=== PATIENT | female | born 1955 | race Caucasian/White ===

== ENCOUNTER 2021-10-29 15:03 | Observation (INO) | payer OTHER ==
--- OUTSIDE RECORDS SUMMARY | 2021-10-29 15:07 | XMS REPORT | Continuity of Care Document ---
:1955 Author Organization [facility] t Address [address] [place] [address] Care Team Providers Name Role Phone ALANA, CAMERON Huff Primary Care Physician Unavailable Pal Mason Attending Clinician Unavailable Concepcion Dietrich Attending Clinician Unavailable Aaron Bertrand DO Attending Clinician AARON BERTRAND Attending Clinician Unavailable Payers Payer Name Policy Type Policy Number Effective Date Expiration Date S ource Problems Condition Condition Condition Status Onset Resolution Last Treating Co mments Source Name Details Category Date Date Treatment Clinician Date No known No known Disease Unive rs active active ity of problems problems [facility] Allergies, Adverse Reactions, Alerts Allergy Allergy Status Severity Reaction(s) Onset Inactive Treating Comm ents Source Name Type Date Date Clinician Codeine Propensi Active Other - See 2015-03 No Un tracy ty to comments 2-13 allergy, ity of adverse 00:00: makes her [place] reaction 00 too Medical s tired. Branch Meperidi Propensi Active Other - See 2015-03 No U nivers ne ty to comments 2-13 allergy, ity of adverse 00:00: makes her [place] reaction 00 too Medical s tired. Branch Tetracyc Propensi Active Other - See 2015-03 GI U nivers lines ty to comments 2-13 Discomfor ity o f adverse 00:00: t [place] reaction 00 Medical s Branch CODEINE DRUG Active Other-Cmnt 2015-03 Unive rs INGREDI 2-13 ity of 00:00: [place] 00 Medical Branch MEPERIDI DRUG Active Other-Cmnt 2015-03 Univ ers NE INGREDI 2-13 ity of 00:00: [place] 00 Medical Branch TETRACYC Drug Active Other-Cmnt 2015-03 Univ ers LINES Class 2-13 ity of 00:00: [place] 00 [facility] Branch Social History Social Habit Start Date Stop Date Quantity Comments Source Exposure to Not sure [facility] SARS-CoV-2 (event) Medica l Branch Sex Assigned [birth year] [facility] 00:00:00 00:00:00 [facility] Branch Smoking Status Start Date Stop Date Source Unknown if ever smoked [facility] Medications Ordered Filled Start Stop Current Ordering Indication Dosage Frequency Signature Comments Components Source Medication Medication Date Date Medication? Clinician (SIG) Name Name amoxicillin 2020-03 Yes [id number] 1{tbl} Take 1 Univers -clavulanat 1-10 tablet by ity of e 875-125 00:00: mouth [place] mg per 00 every 12 Medical tablet (twelve) Branch hours. Immunizations Ordered Filled Immunization Date Status Comments [facility] e Immunization Name Name SARS-COV-2 COVID-19 2020-06-25 Completed Unive rsity of PFIZER VACCINE 00:00:00 [facility] SARS-COV-2 COVID-19 2020-06-04 Completed Unive rsity of PFIZER VACCINE 00:00:00 [facility] Vital Signs Vital Name Observation Time Observation Value Comments Source Systolic blood 2021-01-22 14:50:00 120 mm[Hg] Univer sity of pressure [facility] Diastolic blood 2021-01-22 14:50:00 94 mm[Hg] Unive rsity of pressure [facility] Heart rate 2021-01-22 14:50:00 84 /min [facility] Body temperature 2021-01-22 14:50:[address] [facility] 2021-01-22 14:50:00 16 /min [facility] Body height 2021-01-22 14:50:00 152.4 cm [facility] Body weight 2021-01-22 14:50:00 61.236 kg [facility] BMI 2021-01-22 14:50:00 26.37 kg/m2 [facility] Medical Branch Oxygen saturation in 2021-01-22 14:50:00 99 /min University Arterial blood by [facility] Pulse oximetry Branch Procedures Procedure Date / Time Performed Performing Clinician [facility] e NOTICE OF PRIVACY 2021-01-22 14:42:16 Doctor Unassigned, No Univ [facility] PRACTICES Name Medical Branch Encounters Start End Encounter Admission Attending Care Care Encounter Source Date/Time Date/Time Type Type Clinicians Facility Department ID 2021-04-09 Outpatient Mason, STLMLC STLMLC [id number] Common 14:03:57 [facility] [id number] [facility] 2021-04-09 Outpatient Mason, STLMLC STLMLC [id number] Common 13:50:42 [facility] [id number] [facility] 2021-04-09 Outpatient Mason, STLMLC STLMLC [id number] Common 13:46:26 [facility] [id number] [facility] 2021-04-09 Outpatient Mason, STLMLC STLMLC [id number] Common 13:33:16 [facility] [id number] [facility] 2021-04-09 Outpatient Mason, STLMLC STLMLC [id number] Common 12:31:47 [facility] [id number] [facility] 2021-04-09 Outpatient Mason, STLMLC STLMLC [id number] Common 12:27:56 [facility] [id number] [facility] 2021-04-09 Outpatient Mason, STLMLC STLMLC [id number] Common 12:25:49 [facility] [id number] [facility] 2021-04-09 Outpatient Mason, STLMLC STLMLC [id number] Common 12:16:10 Pal [address] [facility] 2021-04-09 Outpatient Mason, STLMLC STLMLC [id number] Common 11:57:55 Pal [address] [facility] 2021-04-09 Outpatient Mason, STLMLC STLMLC [id number] Common 11:57:32 Pal [address] [facility] 2021-04-09 Outpatient Mason, STLMLC STLMLC [id number] Common 11:55:52 [facility] [id number] [facility] 2021-04-09 Outpatient Mason, STLMLC STLMLC [id number] Common 11:49:29 [facility] [id number] [facility] 2021-04-09 Outpatient Mason, STLMLC STLMLC [id number] Common 11:46:51 [facility] [id number] [facility] 2021-04-09 Outpatient STLMLC STLMLC [id number] Common 11:43:46 13044 [facility] 2021-04-09 Outpatient STLMLC STLMLC [id number] Common 11:43:34 25[address] [facility] 2021-04-09 Outpatient Millender, STLMLC STLMLC [id number] Common 11:40:16 Concepcion 417[address] [facility] 2021-04-09 Outpatient Millender, STLMLC STLMLC [id number] Common 11:36:34 Concepcion 6[address] [facility] 2021-04-09 Outpatient Millender, STLMLC STLMLC [id number] Common 11:17:58 Concepcion [address]757 [facility] 2021-04-09 Outpatient Millender, STLMLC STLMLC [id number] Common 11:11:16 Concepcion [id number] [facility] 2021-04-09 Outpatient Millender, STLMLC STLMLC [id number] Common 11:05:21 Concepcion [id number] [facility] 2021-04-09 Outpatient Millender, STLMLC STLMLC [id number] Common 11:04:44 Concepcion [id number] [facility] 2021-04-09 Outpatient Millender, STLMLC STLMLC [id number] Common 11:01:04 Concepcion [id number] [facility] 2021-04-09 Outpatient Millender, STLMLC STLMLC [id number] Common 11:00:52 Concepcion [id number] [facility] 2021-01-22 2021-01-22 [id number] Univers 08:55:00 09:25:00 Aaron PZIANO [id number] [facility] [id number] [facility] [id number] [place] [address] Branch 2021-01-22 2021-01-22 Emergency X [facility] ERT [id number] Univers 08:55:00 09:25:00 AARON ity [facility] 2021-01-06 2021-01-06 Outpatient STLMLC STLMLC [id number] Common 00:00:00 00:00:00 [facility] 2020-12-18 2020-12-18 Outpatient STLMLC STLMLC [id number] Common 00:00:00 00:00:00 [facility] 2020-12-12 2020-12-12 Outpatient STLMLC STLMLC [id number] Common 00:00:00 00:00:00 [facility] 2020-12-02 2020-12-02 Outpatient STLMLC STLMLC [id number] Common 00:00:00 00:00:00 [facility] 2020-11-22 2020-11-22 Outpatient STLMLC STLMLC [id number] Common 00:00:00 00:00:00 [facility] 2020-11-14 2020-11-14 Outpatient STLMLC STLMLC [id number] Common 00:00:00 00:00:00 [facility] 2020-08-06 2020-08-06 Outpatient STLMLC STLMLC [id number] Common 00:00:00 00:00:00 [facility] 2020-08-06 2020-08-06 Outpatient STLMLC STLMLC [id number] Common 00:00:00 00:00:00 [facility] 2020-06-18 2020-06-18 Outpatient STLMLC STLMLC [id number] Common 00:00:00 00:00:00 [facility] 2020-05-08 2020-05-08 Outpatient STLMLC STLMLC [id number] Common 00:00:00 00:00:00 [facility] 2020-02-29 2020-02-29 Outpatient STLMLC STLMLC [id number] Common 00:00:00 00:00:00 [facility] 2020-01-25 2020-01-25 Outpatient STLMLC STLMLC [id number] Common 00:00:00 00:00:00 [facility] 2020-01-04 2020-01-04 Outpatient STLMLC STLMLC [id number] Common 00:00:00 00:00:00 [facility] 2019-12-27 2019-12-27 Outpatient STLMLC STLMLC [id number] Common 00:00:00 00:00:00 [facility] 2019-12-18 2019-12-18 Outpatient STLMLC STLMLC [id number] Common 00:00:00 00:00:00 [facility] 2019-12-12 2019-12-12 Outpatient STLMLC STLMLC [id number] Common 00:00:00 00:00:00 [facility] 2019-12-12 2019-12-12 Outpatient STLMLC STLMLC [id number] Common 00:00:00 00:00:00 [facility] 2019-12-11 2019-12-11 Outpatient STLMLC STLMLC [id number] Common 00:00:00 00:00:00 [facility] 2019-11-30 2019-11-30 Outpatient STLMLC STLMLC [id number] Common 00:00:00 00:00:00 [facility] Results This patient has no known results.
[2021-10-29 16:04] LABS: Absolute Lymphocytes (CBC) 0.8 K/uL (0.7-4.9); Hematocrit 46.2 % (36.0-45.0); Lymphocytes % 16.7 % (15.3-44.8); MCV 93.3 fL (80-100); MPV 8.6 fL (7.6-11.3); RBC Red Blood Cell Count 4.95 M/uL (3.86-4.86)
--- NOTE | 2021-10-29 16:12 | RAD REPORT ---
EXAM DESCRIPTION: CT - Head Brain Wo Cont - 10/29/2021 4:02 pm CLINICAL HISTORY: sdf COMPARISON: No comparisons TECHNIQUE: Axial 5 mm thick images of the head were obtained without IV contrast. All CT scans are performed using dose optimization technique as appropriate and may include automated exposure control or mA/KV adjustment according to patient size. FINDINGS: No intracranial hemorrhage, mass, edema or shift of mid-line structures. No acute cortical based infarction. No cortical edema or sulcal effacement. No abnormal extra-axial fluid collections. Ventricles are normal. Patient has advanced for age diminished attenuation throughout the cerebral w padilla matter. Thalamus, basal ganglia and brainstem tissues appear generally spared. Arterial tree edd cifications are present. Mastoid air cells and visualized portions of the paranasal sinuses are clear. No acute bony findings. IMPRESSION: No hemorrhage, mass or other acute intracranial finding identifiable. Extensive diminished attenuation in the cerebral white matter. This is most likely advanced for age c hronic ischemic change. Chronic ischemic change can mask nonhemorrhagic CVA.
--- NOTE | 2021-10-29 16:19 | RAD REPORT ---
EXAM DESCRIPTION: RAD - Chest Single View - 10/29/2021 3:51 pm CLINICAL HISTORY: MALAISE COMPARISON: None TECHNIQUE: AP portable chest image was obtained 10/29/2021 3:51 pm . FINDINGS: Interstitial markings are prominent suspected to be baseline fibrosis. Minimal edema or in filtrate could be masked. No peripheral mass or consolidations seen. Heart and vasculature are normal. No measurable pleural effusion and no pneumothorax. No acute bony abnormality seen. No acute aortic findings suspected. IMPRESSION: No acute cardiopulmonary process. Prominent interstitial pattern is believed be baseline. Mild edema or infiltrate could be masked.
[2021-10-29 16:29] LABS: Albumin 3.3 g/dL (3.4-5.0); Bilirubin Total 0.3 mg/dL (0.2-1.0); Potassium 4.4 mmol/L (3.5-5.1); Protein, Total 6.6 g/dL (6.4-8.2); Troponin High Sensitivity 4.3 pg/mL (<58.9)
[2021-10-29] MEDS ORDERED: INSULIN -REGULAR HUMAN 50 UNIT/0.5 ML ML ONE (17:13)
[2021-10-29] MEDS ORDERED: NA CHLORIDE 0.9% 1,000 ML ONE (17:13)
--- NOTE | 2021-10-29 17:19 | EDPHYS ---
Physician Documentation [facility] Name: Laurie Frank Age: 66 yrs Sex: Female : 1955 Arrival Date: 10/29/2021 Time: 15:09 Bed 14 Private MD: Anders Drew ED Physician Mark Salguero HPI: 10/29 17:14 This 66 yrs old Female presents to ER via Wheelchair with complaints of Sent jl9 By Rajendra, Trouble Walking x numerous weeks.. 17:14 Onset: The symptoms/episode began/occurred 2 week(s) ago. Associated signs and jl9 symptoms: Pertinent positives:. Modifying factors: The patient symptoms are alleviated by nothing, the patient symptoms are aggravated by nothing. It is unknown whether or not the patient has had similar symptoms in the past. Historical: - Allergies: 15:15 TETRACYCLINES; jh5 15:15 Codeine; jh5 - Immunization history:: Adult Immunizations up to date. - Social history:: Smoking status: Patient denies any tobacco usage or history of. Patient/guardian denies using tobacco, but has a distant history of tobacco abuse. ROS: 17:15 Constitutional: Negative for fever, chills, and weight loss. jl9 17:15 ENT: Negative for injury, pain, and discharge, Neck: Negative for injury, pain, and swelling, Cardiovascular: Negative for chest pain, palpitations, and edema, Respiratory: Negative for shortness of breath, cough, wheezing, and pleuritic chest pain, Abdomen/GI: Negative for abdominal pain, nausea, vomiting, diarrhea, and constipation, Back: Negative for injury and pain, : Negative for injury, bleeding, discharge, and swelling. 17:15 Skin: Negative for injury, rash, and discoloration. 17:15 Psych: Negative for depression, anxiety, suicide ideation, homicidal ideation, and hallucinations, Allergy/Immunology: Negative for hives, rash, and allergies, Endocrine: Negative for neck swelling, polydipsia, polyuria, polyphagia, and marked weight changes, Hematologic/Lymphatic: Negative for swollen nodes, abnormal bleeding, and unusual bruising. 17:15 Constitutional: Positive for malaise, poor PO intake. 17:15 MS/extremity: Positive for Lower leg weakness bilaterally. . 17:15 Neuro: Positive for weakness. Exam: 17:16 Constitutional: This is a well developed, well nourished patient who is awake, alert, jl9 and in no acute distress. Head/Face: Normocephalic, atraumatic. Eyes: Pupils equal round and reactive to light, extra-ocular motions intact. Lids and lashes normal. Conjunctiva and sclera are non-icteric and not injected. Cornea within normal limits. Periorbital areas with no swelling, redness, or edema. ENT: Mucous membranes moist. Neck: Trachea midline, no thyromegaly or masses palpated, and no cervical lymphadenopathy. Supple, full range of motion without nuchal rigidity, or vertebral point tenderness. No Meningismus. Chest/axilla: Normal chest wall appearance and motion. Nontender with no deformity. No lesions are appreciated. Cardiovascular: Regular rate and rhythm with a normal S1 and S2. No gallops, murmurs, or rubs. Normal PMI, no JVD. No pulse deficits. Respiratory: Lungs have equal breath sounds bilaterally, clear to auscultation and percussion. No rales, rhonchi or wheezes noted. No increased work of breathing, no retractions or nasal flaring. Abdomen/GI: Soft, non-tender, with normal bowel sounds. No distension or tympany. No guarding or rebound. No evidence of tenderness throughout. Back: No spinal tenderness. No costovertebral tenderness. Full range of motion. Skin: Warm, dry with normal turgor. Normal color with no rashes, no lesions, and no evidence of cellulitis. MS/ Extremity: Pulses equal, no cyanosis. Neurovascular intact. Full, normal range of motion. 17:16 Psych: Awake, alert, with orientation to person, place and time. Behavior, mood, and affect are within normal limits. 17:16 Neuro: Motor: strength is 5/5 in the right arm and left arm, Strength is 2/5 in the right leg and left leg. Vital Signs: 15:17 BP 121 / 82; Pulse 104; Resp 16; Temp 98.5; Pulse Ox 97% ; Weight 43.54 kg; Height 4 jh5 ft. 11 in. (149.86 cm); Pain 0/10; 16:38 BP 114 / 78; Pulse 80; Resp 16; Pulse Ox 98% on R/A; kr3 17:46 BP 115 / 74; Pulse 73; Resp 16; Pulse Ox 98% on R/A; kr3 15:17 Body Mass Index 19.39 (43.54 kg, 149.86 cm) [facility] MDM: 15:26 Patient medically screened. 16:21 Test interpretation: by ED physician or midlevel provider: ECG. 17:17 Data reviewed: vital signs, nurses notes, lab test result(s), radiologic studies. Counseling: I had a detailed discussion with the patient and/or guardian regarding: the historical points, exam findings, and any diagnostic results supporting the discharge/admit diagnosis, lab results, radiology results, the need for further work-up and treatment in the hospital. Physician consultation: Anders Drew MD was called at 17:17, was contacted at 17:17, regarding admission, and will see patient in inpatient room. 10/29 15:29 Order name: CBC with Diff; Complete Time: 16:26 10/29 15:29 Order name: Troponin HS; Complete Time: 16:46 10/29 15:29 Order name: XRAY Chest (1 view); Complete Time: 16:26 10/29 15:30 Order name: CMP; Complete Time: 16:46 10/29 15:36 Order name: SARS-COV-2 RT PCR (Document "Date of Onset" if Symptomatic); Complete Time: 18:20 10/29 18:08 Order name: Glucose, Ancillary Testing; Complete Time: 18:20 EDMS 10/29 15:29 Order name: EKG; Complete Time: 15:30 10/29 15:29 Order name: Cardiac monitoring; Complete Time: 16:12 10/29 15:29 Order name: EKG - Nurse/Tech; Complete Time: 15:54 10/29 15:29 Order name: IV Saline Lock; Complete Time: 15:54 10/29 15:29 Order name: Labs collected and sent; Complete Time: 15:54 10/29 15:29 Order name: CT Head Brain wo Cont; Complete Time: 16:26 10/29 15:29 Order name: O2 Per Protocol; Complete Time: 16:10 10/29 15:29 Order name: O2 Sat Monitoring; Complete Time: 16:10 jl9 10/29 16:22 Order name: Labs collected and sent: recollect covid on pcr swab; Complete Time: 16:34 bd Administered Medications: 17:08 Drug: Insulin Regular Human 10 units {Co-Signature: ll1 (Alma Rosa Wang RN).} Route: IVP; kr3 Site: right antecubital; 17:51 Follow up: Response: No adverse reaction kr3 17:10 Drug: NS 0.9% 1000 ml Route: IV; Rate: 1000 ml; Site: right antecubital; kr3 18:23 Follow up: Response: No adverse reaction; IV Status: Completed infusion; IV Intake: kr3 1000ml Disposition: 17:53 Co-signature as Attending Physician, Mark NAIK was immediately available on-site ms3 in the Emergency Department for consultation in the care of the patient.. Disposition Summary: 10/29/21 17:18 Hospitalization Ordered Hospitalization Status: Inpatient Admission jl9 Provider: Anders Drew [facility] Location: Telemetry/MedSur (Inpatient) jl9 Condition: Fair jl9 Problem: new jl9 Symptoms: are unchanged jl9 Bed/Room Type: Standard 9 Room Assignment: 217(10/29/21 21:34) cg Diagnosis - Muscle weakness (generalized) jl9 - Hyperglycemia, unspecified jl9 Forms: - Medication Reconciliation Form jl9 - SBAR form jl9 Signatures: Dispatcher [employer] EDAnanya Cobian Cindy, RN RN cg Sims, Marcus, DO DO ms3 Kim Mayes RN RN Jaydon Valencia jl9 Macy Menjivar RN RN kr3 Alma Rosa Wang RN ll1 Corrections: (The following items were deleted from the chart) 21:34 17:18 jl9 cg
--- NOTE | 2021-10-29 17:19 | ER ---
Nurse's Notes [facility] Name: Laurie Frank Age: 66 yrs Sex: Female : 1955 Arrival Date: 10/29/2021 Time: 15:09 Bed 14 Private MD: Anders Drew Diagnosis: Muscle weakness (generalized);Hyperglycemia, unspecified Presentation: 10/29 15:17 Chief complaint: Patient states: from [place]; pt started having symptoms 3 weeks ago jh5 getting weak and decreased activity, and the last two days has declined where she can not walk, wont chew/swallow food but DOES swallow liquids without choking. Pt AAOX4, and answers questions appropriate, no slurred speech. Coronavirus screen: Vaccine status: Patient reports receiving the 2nd dose of the covid vaccine. Client denies travel out of the [place] in the last 14 days. Ebola Screen: Patient negative for fever greater than or equal to 101.5 degrees Fahrenheit, and additional compatible Ebola Virus Disease symptoms Patient denies exposure to infectious person. Patient denies travel to an Ebola-affected area in the 21 days before illness onset. Initial Sepsis Screen: Does the patient meet any 2 criteria? No. Patient's initial sepsis screen is negative. Does the patient have a suspected source of infection? No. Patient's initial sepsis screen is negative. Risk Assessment: Do you want to hurt yourself or someone else? Patient reports no desire to harm self or others. Onset of symptoms was September 29, 2021. 15:17 Method Of Arrival: Wheelchair [facility] 15:17 Acuity: LAURI 2 5 Triage Assessment: 15:15 General: Appears slender, Behavior is calm, cooperative, appropriate for age. Pain: 5 Denies pain. Respiratory:. 15:17 Respiratory: Reports. 5 15:21 Neuro: Level of Consciousness is awake, alert, obeys commands, Oriented to person, [facility] place, time, situation, Appropriate for age Gait is unsteady, shuffling, Speech is normal. 16:36 Respiratory: Onset: The symptoms/episode began/occurred caregiver reported the current kr3 condition started on Wednesday10/24/21. Historical: - Allergies: 15:15 TETRACYCLINES; jh5 15:15 Codeine; jh5 - Immunization history:: Adult Immunizations up to date. - Social history:: Smoking status: Patient denies any tobacco usage or history of. Patient/guardian denies using tobacco, but has a distant history of tobacco abuse. Screenin:21 Abuse screen: Denies threats or abuse. Denies injuries from another. Nutritional 5 screening: No deficits noted. Tuberculosis screening: No symptoms or risk factors identified. Fall Risk None identified. Assessment: 15:21 Cardiovascular:. Respiratory: Airway is patent Respiratory effort is even, unlabored, jh5 Breath sounds are clear. 15:57 General: Appears ill, unkempt, Behavior is cooperative, listless. kr3 17:50 Cardiovascular: Rhythm is sinus rhythm. kr3 Vital Signs: 15:17 BP 121 / 82; Pulse 104; Resp 16; Temp 98.5; Pulse Ox 97% ; Weight 43.54 kg; Height 4 5 ft. 11 in. (149.86 cm); Pain 0/10; 16:38 BP 114 / 78; Pulse 80; Resp 16; Pulse Ox 98% on R/A; kr3 17:46 BP 115 / 74; Pulse 73; Resp 16; Pulse Ox 98% on R/A; kr3 15:17 Body Mass Index 19.39 (43.54 kg, 149.86 cm) 5 ED Course: 15:09 Patient arrived in ED. rg4 15:09 Anders Drew MD is Private Physician. rg4 15:20 Triage completed. jh5 15:23 Darrion Hamilton, RAJAT is Primary Nurse. ja4 15:26 [facility] jl9 15:26 Mark Salguero DO is Attending Physician. jl9 15:26 Arm band placed on Patient placed in an exam room, on a stretcher. ll1 15:28 Macy Menjivar, RAJAT is Primary Nurse. kr3 15:53 XRAY Chest (1 view) In Process Unspecified. EDMS 16:00 Bed in low position. Call light in reach. Side rails up X 1. kr3 16:04 CT Head Brain wo Cont In Process Unspecified. EDMS 16:05 Inserted saline lock: 20 gauge in left antecubital area, using aseptic technique. Blood kr3 collected. 16:34 SARS-COV-2 RT PCR (Document "Date of Onset" if Symptomatic) Sent. kc6 17:18 Anders Drew MD is Hospitalizing Provider. jl9 17:47 No provider procedures requiring assistance completed. kr3 Administered Medications: 17:08 Drug: Insulin Regular Human 10 units {Co-Signature: ll1 (Alma Rosa Wang RN).} Route: IVP; kr3 Site: right antecubital; 17:51 Follow up: Response: No adverse reaction kr3 17:10 Drug: NS 0.9% 1000 ml Route: IV; Rate: 1000 ml; Site: right antecubital; kr3 18:23 Follow up: Response: No adverse reaction; IV Status: Completed infusion; IV Intake: kr3 1000ml Intake: 18:23 IV: 1000ml; Total: 1000ml. kr3 Outcome: 17:18 Decision to Hospitalize by Provider. jl9 22:20 Patient left the ED. vc1 Signatures: Dispatcher [employer] Sarah Rowan 4 Alma Rosa Wang RN RN ll1 Kim Mayes, RN RN jh5 Goldie Nguyen RN RN vc1 Jaydon Bob jl9 Macy Menjivar RN RN kr3 Shayy Hong kc6 Darrion Hamilton RN RN ja4 Alma Rosa Wang RN ll1 Corrections: (The following items were deleted from the chart) 17:48 16:15 Inserted saline lock: 20 gauge in left antecubital area, using aseptic technique. kr3 Blood collected. kr3
[2021-10-30 02:06] VITALS: BMI 19.3
[2021-10-30 04:02] LABS: Absolute Lymphocytes (CBC) 1.2 K/uL (0.7-4.9); Hematocrit 44.8 % (36.0-45.0); Lymphocytes % 21.3 % (15.3-44.8); MCV 93.8 fL (80-100); MPV 8.8 fL (7.6-11.3); RBC Red Blood Cell Count 4.77 M/uL (3.86-4.86)
[2021-10-30 04:18] LABS: Potassium 3.8 mmol/L (3.5-5.1)
[2021-10-30] MEDS ORDERED: GLUCAGON 1 MG/VIAL IM PRN (09:51)
[2021-10-30] MEDS ORDERED: D50W 25 GM/50 ML SYRINGE IV PRN (09:51)
[2021-10-30] MEDS ORDERED: DEXTROSE 10%-WATER 125 ML IV PRN (09:55)
--- NOTE | 2021-10-30 09:57 | P.HP ---
Certification for Inpatient Patient admitted to: Inpatient With expected LOS: >2 Midnights Practitioner: I am a practitioner with admitting privileges, knowledge of patient current condition, hospital course, and medical plan of care. Services: Services provided to patient in accordance with Admission requirements found in Title 42 Section 412.3 of the Code of Federal Regulations Patient History Date of Service: 10/30/21 Primary Care Provider: Rajendra Reason for admission: stroke History of Present Illness: Office patient of [facility] with a history of bipolar disorder, dm2, hypothyroidism. She had a phone visit to review her labs. However her sister stated she could not walk or swallow. She was in the office last week and walked on her own with no complaints. She was asked to come into the office. She needed to be wheeled in on a rolling walker. Her sister has been helping her stand and transfer since Wednesday. She had a tremor in her jaw. Her sister also reported she had difficulty swallowing. She nows the place she was, date and the name of the president. The patient needed 2 person assistance to stand. This was a major change from the patient in the office. 10/23. considering this she was sent to the ER for stroke evaluation. Have discussed the patient with Dr. Mcgregor. Her CT in the ER showed nothing acute. She had chronic ischemic changes Allergies codeine Allergy (Verified 10/29/21 21:53) Itching/Hives/Rash Tetracyclines Allergy (Verified 10/29/21 21:53) Itching/Hives/Rash Home Medications: Cariprazine HCl [Vraylar] 4.5 mg PO DAILY 10/29/21 Dulaglutide [Trulicity] 1.5 mg SEECOM 10/29/21 Empagliflozin/Metformin HCl [Synjardy 12.5-1,000 mg Tablet] 1 tab PO DAILY 10/29/21 Levothyroxine Sodium 100 mcg PO DAILY 10/29/21 - Past Medical/Surgical History Has patient received pneumonia vaccine in the past: Yes Diabetic: Yes -: NIDDM2 -: HYPOTHYROIDISM -: BIPOLAR TYPE2 - Social History Smoking Status: Former smoker Alcohol use: No CD- Drugs: No Caffeine use: No Place of Residence: Home Review of Systems Neurological: Weakness (strength is 4/5), Change in Speech (slow speach. However words are well formed), Other (tremor of the jaw) Physical Examination - Vital Signs Temperature: 97.4 F Blood Pressure: 132/58 Pulse: 75 Respirations: 16 Pulse Ox (%): 94 - Physical Exam General: Alert, Mild distress HEENT: Atraumatic, PERRLA, Mucous membr. moist/pink, EOMI, Sclerae nonicteric Neck: Supple, 2+ carotid pulse no bruit, No LAD, Without JVD or thyroid abnormality Respiratory: Clear to auscultation bilaterally, Normal air movement Cardiovascular: Regular rate/rhythm, Normal S1 S2 Gastrointestinal: Normal bowel sounds, No tenderness Musculoskeletal: No tenderness Integumentary: No rashes Neurological: Normal affect, Abnormal gait, Abnormal strength (4/5) Lymphatics: No axilla or inguinal lymphadenopathy - Studies Laboratory Data (last 24 hrs) 10/29/21 15:50: Sodium 137, Potassium 4.4, BUN 39 H, Creatinine 0.72, Glucose 453 H*, Total Bilirubin 0.3, AST 23, ALT 45, Alkaline Phosphatase 82 10/29/21 15:50: WBC 4.90, Hgb 14.9, Hct 46.2 H, Plt Count 178 Assessment and Plan - Problems (Diagnosis) (1) Stroke Current Visit: Yes Status: Acute Plan: She is out of the window for tpa or surgical intervention. Will order an MRI, PT and consult with Dr. Mcgregor. Order a swallow evaluation Will start her on asa 81mg and statin for cerebro protective effect. Start fluids as she will need contrast for the MRI. Qualifiers: CVA mechanism: unspecified Qualified Code(s): I63.9 - Cerebral infarction, unspecified (2) Bipolar 1 disorder, depressed Current Visit: Yes Status: Chronic Plan: The patient is well controlled. She was switched to vraylar a few months ago. She was well controlled on lithium. However with vraylar she did not have trem ors. There is a dystonia reaction with vraylar. I still would consider a stroke more likely as she has tolerated the vraylar for several months. To suddenly have a reaction seems less likely (3) Hypothyroidism Current Visit: Yes Status: Chronic Plan: have reduced her dosage from 125 to 100mcg. Based on last weeks out patient labs. (4) Diabetes 1.5, managed as type 2 Current Visit: Yes Status: Chronic Plan: Her a1c is good. Will hold the trulicity. Start her on insulin sliding scale - Advance Directives Does patient have a Living Will: No Does patient have a Durable POA for Healthcare: No - Code Status/Comfort Care Code Status Assessed: Yes Code Status: Full Code Physician Review: Patient Assessed, Agree with Above Assessment and Plan Critical Care: No Time Spent Managing Pts Care (In Minutes): 45
[2021-10-30] MEDS: D5 0.45 NS 1,000 ML IV SCH (11:03)
[2021-10-30] MEDS: INSULIN -REGULAR HUMAN 50 UNIT/0.5 ML ML SQ SCH ×3 (12:06→21:53)
--- NOTE | 2021-10-30 14:07 | RAD REPORT ---
EXAM DESCRIPTION: RAD - Barium Swallow Modified - 10/30/2021 1:54 pm CLINICAL HISTORY: dysphagia COMPARISON: No comparisons TECHNIQUE: The patient was given liquid, semi-solid and solid forms of barium. Lateral view fluorosc opic imaging was performed in conjunction with speech pathology service. FINDINGS: Laryngeal penetration cleared with thin by straw and not cleared with thin by straw. Phary ngeal residue vallecular mild with all consistencies. Muscular pharyngeal wall protrusion c5-c6 and c 6-c7. Moderate esophageal dysmotility at medial and inferior regions. Esophageal spasm or dysrhythmic peristalsis at inferior region. Fluoro time: 3:19
--- NOTE | 2021-10-30 14:28 | EKG ---
Test Date: 2021-10-29 Test Time: 16:21:07 Account Processor: SAMIA MEASUREMENT RESULTS: Intervals: Rate: 76 NC: 126 QRSD: 88 QT: 408 QTc: 459 [place]: P: 60 NC: 126 QRS: 78 T: 61 INTERPRETIVE STATEMENTS: Normal sinus rhythm Normal ECG No previous ECG available for comparison Electronically Signed On 10-30-21 14:27:56 CDT by Trevon Bateman
--- NOTE | 2021-10-30 15:16 | RAD REPORT ---
EXAM DESCRIPTION: MRI - Brain W/Wo Cont - 10/30/2021 2:36 pm CLINICAL HISTORY: stroke protochol Headache, drowsiness, CVA symptomology COMPARISON: MRA Head Wo Cont dated 10/30/2021; MRA Neck W/Wo Cont dated 10/30/2021 TECHNIQUE: Multi-sequence, multiplanar MR imaging of the brain was performed with contrast. FINDINGS: No intracranial hemorrhage, hydrocephalus, or extra-axial fluid collection.Moderate to sig nificant confluent T2/FLAIR hyperintensity in the periventricular and deep white matter is present co mpatible with chronic microvascular ischemic changes. No edema or shift of midline structures. No int racranial mass. DWI is negative for acute CVA. The midline structures are normally formed. Mastoid air cells and paranasal sinuses are clear. Post-contrast images show no abnormal enhancement to suggest tumor or infection. IMPRESSION: Negative for acute CVA or other acute intracranial process. No pathologic post-contrast enhancement suspected.
--- NOTE | 2021-10-30 15:19 | RAD REPORT ---
EXAM DESCRIPTION: MRI - MRA Head Wo Cont - 10/30/2021 3:08 pm CLINICAL HISTORY: STROKE PROTOCOL CVA COMPARISON: Head Brain Wo Cont dated 10/29/2021 FINDINGS: 3D noncontrast [id number] MR angiography of the [place] was performed. No aneurysm, flow-limiting stenosis or vascular malformation is seen. Forward flow seen in codominant vertebral arteries. The visualized dural venous sinuses appear patent. IMPRESSION: No significant flow abnormality of the [place] is identified.
--- NOTE | 2021-10-30 15:21 | RAD REPORT ---
EXAM DESCRIPTION: MRI - MRA Neck W/Wo Cont - 10/30/2021 3:08 pm CLINICAL HISTORY: STROKE PROTOCOL Headache, drowsiness, CVA symptomology COMPARISON: No comparisons FINDINGS: Contrast enhance 2D [id number] MR angiography of the neck vessels was performed. Left aortic arch is present. Normal branching pattern of the great vessels. Both common carotid arteries and subclavian arteries are widely patent. Mild narrowing of proximal right internal carotid artery seen, indicating less than 50% stenosis base d on NASCET criteria. Mild narrowing of the left carotid bulb also present estimated at 50% or less. No high-grade stenosis seen. IMPRESSION: Mild narrowing of both carotid bulbs is present. No high-grade carotid stenosis seen.
[2021-10-30] MEDS: ATORVASTATIN 10 MG TAB PO SCH (21:53)
[2021-10-31] MEDS: D5 0.45 NS 1,000 ML IV SCH ×2 (03:32→06:00)
[2021-10-31] MEDS: LEVOTHYROXINE SOD 0.1 MG TAB PO SCH (05:53)
[2021-10-31 06:15] LABS: Absolute Lymphocytes (CBC) 1.4 K/uL (0.7-4.9); Hematocrit 41.9 % (36.0-45.0); Lymphocytes % 26.1 % (15.3-44.8); MCV 90.5 fL (80-100); MPV 7.7 fL (7.6-11.3); RBC Red Blood Cell Count 4.63 M/uL (3.86-4.86)
[2021-10-31 06:31] LABS: Albumin 2.8 g/dL (3.4-5.0); Bilirubin Total 0.4 mg/dL (0.2-1.0); Potassium 3.6 mmol/L (3.5-5.1); Protein, Total 5.7 g/dL (6.4-8.2)
--- NOTE | 2021-10-31 08:16 | P.PN ---
Subjective Date of Service: 10/31/21 Primary Care Provider: Rajendra Chief Complaint: stroke Subjective: No new changes Review of Systems 10-point ROS is otherwise unremarkable General: Weakness Physical Examination - Vital Signs Temperature: 97.2 F Blood Pressure: 147/74 Pulse: 79 Respirations: 14 Pulse Ox (%): 98 - Physical Exam General: Alert, In no apparent distress HEENT: Atraumatic, PERRLA, EOMI Neck: Supple, JVD not distended Respiratory: Clear to auscultation bilaterally, Normal air movement Cardiovascular: Regular rate/rhythm, Normal S1 S2 Gastrointestinal: Normal bowel sounds, No tenderness Musculoskeletal: No tenderness Integumentary: No rashes Neurological: Normal reflexes 2+, Normal affect, Abnormal strength (4/5 with increased tone ) Lymphatics: No axilla or inguinal lymphadenopathy Assessment And Plan - Current Problems (Diagnosis) (1) Stroke Current Visit: Yes Status: Acute Plan: She is out of the window for tpa or surgical intervention. Will order an MRI, PT and consult with Dr. Mcgregor. Order a swallow evaluation Will start her on asa 81mg and statin for cerebro protective effect. Start fluids as she will need contrast for the MRI. 11/01 No signs of a stroke. Will discuss with Dr. Mcgregor. Will try holding the vra ylar. Will need placement. Qualifiers: CVA mechanism: unspecified Qualified Code(s): I63.9 - Cerebral infarction, unspecified (2) Bipolar 1 disorder, depressed Current Visit: Yes Status: Chronic Plan: The patient is well controlled. She was switched to vraylar a few months ago. She was well controlled on lithium. However with vraylar she did not have tremors. There is a dystonia reaction with vraylar. I still would consider a stroke more likely as she has tolerated the vraylar for several months. To suddenly have a reaction seems less likely (3) Hypothyroidism Current Visit: Yes Status: Chronic Plan: have reduced her dosage from 125 to 100mcg. Based on last weeks out patient labs. (4) Diabetes 1.5, managed as type 2 Current Visit: Yes Status: Chronic Plan: Her a1c is good. Will hold the trulicity. Start her on insulin sliding scale Discharge Plan: LTAC Plan to discharge in: 48 Hours - Code Status/Comfort Care Code Status Assessed: No Physician Review: Patient Assessed, Agree with Above Assessment and Plan Critical Care: No Time Spent Managing PTS Care (In Minutes): 20
[2021-10-31] MEDS: INSULIN -REGULAR HUMAN 50 UNIT/0.5 ML ML SQ SCH ×4 (08:39→21:01)
[2021-10-31] MEDS: ASPIRIN EC 81 MG TAB PO SCH (08:39)
--- NOTE | 2021-10-31 19:57 | CON ---
Reason For Consultation: Consultation called because of possible stroke. History Of Present Illness: Ms. Neil Frank is a 66-year-old right-handed patient with psychiatric diagnosis of bipolar disorder, longstanding on multiple antipsychotics and neuroleptics m edications who comes to [facility] with progressive weakness and failure to thrive and diffi culty swallowing. I spoke with the patient's sister. She has had progressive problems of eating ove r several weeks. However, she needed significant help for transfers, standing, and eat and was then brought to [facility] and admitted for evaluation of possible stroke. Her head CT scan and brain MRI with MRA did not show any acute ischemic or hemorrhagic stroke. No significant abnormaliti es were identified in the vasculature in the neck and head. She did have a modified barium swallow s tudy showing moderate esophageal dysmotility at the medial and inferior regions that was esophageal s pasm and dysrhythmic peristalsis at inferior regions. Past Medical History: Lfg-[id number]-yrngayyxz diabetes mellitus and hypothyroidism. Allergies: CODEINE AND TETRACYCLINE. Home Medications: Vraylar 4.5 mg daily, Trulicity 1.5 mg daily, metformin/empagliflozin 1000/12.5 da anusha, and levothyroxine 100 mcg daily. Family History: Her mother has had a long chronic standing tremor and the patient has similar tremor in the jaw. Social History: Smoked in the past. No current smoking. No alcohol or IV drug use. The patient li ves at home with sister. Review of Systems: She has some difficulty with swallowing, slow speech, and diffuse weakness. No fevers or chills. Mi ld myalgias and arthralgias. Physical Examination: Vital Signs: Blood pressure 126/73, pulse 78, respiratory rate 14-18, temperature 97.5, oxygen satur ation 97%. Weight 96 pounds, height 4 feet 11 inches, BMI 19.2. General: Ms. Trejo is resting in bed. She does have a mild jaw tremor that is chronic and long te rm per the patient's sister. It is tremor that her mother has and is non parkinsonian, likely benign essential tremor. HEENT: Otherwise, she is normocephalic, atraumatic. Sclerae anicteric. Oropharynx is pink and mois t. Neck: Supple. Chest: Clear. Heart: Regular. Extremities: No clubbing, cyanosis, or edema. Neurological: She is slow to respond to questions. She is alert and oriented to situation and place and answered appropriately. She has no focal cranial nerve, motor, coordination, sensory, gait or r eflex deficits. She was evaluated by the physical therapists. She did ambulate 20 feet with a rolli ng walker and moderate assistance. She was unsteady on her feet. Consultation is for possible admis rosendo to inpatient rehabilitation. Laboratory Studies: Complete blood count with differential is normal. Basic metabolic panel shows s lightly elevated BUN of 24, glucose ranged from 208-211. Liver function studies are normal. COVID-1 9 test is negative. Electrocardiogram shows normal sinus rhythm and is a normal study. Chest x-ray shows no acute cardiopulmonary findings. Assessment: Ms. Neil Frank is a 66-year-old patient with psychiatric diagnoses and multiple neur oleptic type medications. She has failure to thrive. She has a chronic tremor, likely benign essent ial tremor. She has esophageal dysmotility. She has diabetes mellitus as well. She has no evidence of stroke clinically or by brain MRI. Her more likely etiology is psychiatric in terms of her inabi lity to be up and ambulate without difficulty. She may also benefit from a GI workup and possible es ophageal dilatation. Plan: 1.She may be evaluated for her candidacy to the inpatient rehabilitation unit to improve her gait, c oordination, activities of daily living, and swallowing. 2.Continue all comorbid condition medications as indicated. JEANNIE/ANOTNIAL Voice ID: [id number] Report ID: [id number]
[2021-10-31] MEDS: ATORVASTATIN 10 MG TAB PO SCH (21:01)
[2021-11-01] MEDS: LEVOTHYROXINE SOD 0.1 MG TAB PO SCH (06:13)
[2021-11-01 06:33] LABS: Absolute Lymphocytes (CBC) 1.4 K/uL (0.7-4.9); Lymphocytes % 33.4 % (15.3-44.8); MCV 91.9 fL (80-100); RBC Red Blood Cell Count 4.58 M/uL (3.86-4.86)
[2021-11-01 07:17] LABS: Albumin 2.8 g/dL (3.4-5.0); Bilirubin Total 0.4 mg/dL (0.2-1.0); Potassium 3.6 mmol/L (3.5-5.1); Protein, Total 5.7 g/dL (6.4-8.2)
[2021-11-01] MEDS: ASPIRIN EC 81 MG TAB PO SCH (08:37)
[2021-11-01] MEDS: INSULIN -REGULAR HUMAN 50 UNIT/0.5 ML ML SQ SCH ×4 (09:04→22:16)
--- NOTE | 2021-11-01 12:06 | P.PN ---
Subjective Date of Service: 11/01/21 Primary Care Provider: Rajendra Chief Complaint: stroke Subjective: No new changes Review of Systems 10-point ROS is otherwise unremarkable General: Weakness Physical Examination - Vital Signs Temperature: 97.1 F Blood Pressure: 109/70 Pulse: 72 Respirations: 16 Pulse Ox (%): 100 - Physical Exam General: Alert, In no apparent distress HEENT: Atraumatic, PERRLA, EOMI Neck: Supple, JVD not distended Respiratory: Clear to auscultation bilaterally, Normal air movement Cardiovascular: Regular rate/rhythm, Normal S1 S2 Gastrointestinal: Normal bowel sounds, No tenderness Musculoskeletal: No tenderness Integumentary: No rashes Neurological: Normal speech, Normal tone, Normal affect Lymphatics: No axilla or inguinal lymphadenopathy Assessment And Plan - Current Problems (Diagnosis) (1) Stroke Current Visit: Yes Status: Acute Plan: She is out of the window for tpa or surgical intervention. Will order an MRI, PT and consult with Dr. Mcgregor. Order a swallow evaluation Will start her on asa 81mg and statin for cerebro protective effect. Start fluids as she will need contrast for the MRI. 11/01 [patient is about the same. Plan is for inpatient rehab and GI consult as an outpatient Qualifiers: CVA mechanism: unspecified Qualified Code(s): I63.9 - Cerebral infarction, unspecified (2) Bipolar 1 disorder, depressed Current Visit: Yes Status: Chronic Plan: The patient is well controlled. She was switched to vraylar a few months ago. She was well controlled on lithium. However with vraylar she did not have tremors. There is a dystonia reaction with vraylar. I still would consider a stroke more likely as she has tolerated the vraylar for several months. To suddenly have a reaction seems less likely 11/01 Hold the vraylar for now. If no improvement in her dystonia by Wednesday. Then it is not likely to be due to the medicine and I will restart it. (3) Hypothyroidism Current Visit: Yes Status: Chronic Plan: have reduced her dosage from 125 to 100mcg. Based on last weeks out patient labs. (4) Diabetes 1.5, managed as type 2 Current Visit: Yes Status: Chronic Plan: Her a1c is good. Will hold the trulicity. Start her on insulin sliding scale Discharge Plan: LTAC Plan to discharge in: 24 Hours - Code Status/Comfort Care Code Status Assessed: No Physician Review: Patient Assessed, Agree with Above Assessment and Plan Critical Care: No Time Spent Managing PTS Care (In Minutes): 25
[2021-11-01] MEDS: ATORVASTATIN 10 MG TAB PO SCH (22:16)
[2021-11-02] MEDS: LEVOTHYROXINE SOD 0.1 MG TAB PO SCH (05:50)
[2021-11-02 06:42] LABS: Absolute Lymphocytes (CBC) 1.4 K/uL (0.7-4.9); Hematocrit 41.8 % (36.0-45.0); Lymphocytes % 25.4 % (15.3-44.8); MCV 89.6 fL (80-100); MPV 7.4 fL (7.6-11.3); RBC Red Blood Cell Count 4.67 M/uL (3.86-4.86)
[2021-11-02 07:01] LABS: Albumin 2.8 g/dL (3.4-5.0); Bilirubin Total 0.4 mg/dL (0.2-1.0); Potassium 3.8 mmol/L (3.5-5.1); Protein, Total 5.7 g/dL (6.4-8.2)
[2021-11-02] MEDS: INSULIN -REGULAR HUMAN 50 UNIT/0.5 ML ML SQ SCH ×4 (07:30→21:01)
[2021-11-02] MEDS: ASPIRIN EC 81 MG TAB PO SCH (08:48)
--- NOTE | 2021-11-02 12:42 | P.PN ---
Subjective Date of Service: 11/02/21 Primary Care Provider: Rajendra Chief Complaint: stroke Subjective: No new changes Review of Systems 10-point ROS is otherwise unremarkable Physical Examination - Vital Signs Temperature: 97.1 F Blood Pressure: 138/70 Pulse: 70 Respirations: 16 Pulse Ox (%): 96 - Physical Exam General: Alert, In no apparent distress HEENT: Atraumatic, PERRLA, EOMI Neck: Supple, JVD not distended Respiratory: Clear to auscultation bilaterally, Normal air movement Cardiovascular: Regular rate/rhythm, Normal S1 S2 Gastrointestinal: Normal bowel sounds, No tenderness Musculoskeletal: No tenderness Integumentary: No rashes Neurological: Normal speech, Normal tone, Normal affect Lymphatics: No axilla or inguinal lymphadenopathy Assessment And Plan - Current Problems (Diagnosis) (1) Stroke Current Visit: Yes Status: Acute Plan: She is out of the window for tpa or surgical intervention. Will order an MRI, PT and consult with Dr. Mcgregor. Order a swallow evaluation Will start her on asa 81mg and statin for cerebro protective effect. Start fluids as she will need contrast for the MRI. 11/01 [patient is about the same. Plan is for inpatient rehab and GI consult as an outpatient Qualifiers: CVA mechanism: unspecified Qualified Code(s): I63.9 - Cerebral infarction, unspecified (2) Bipolar 1 disorder, depressed Current Visit: Yes Status: Chronic Plan: The patient is well controlled. She was switched to vraylar a few months ago. She was well controlled on lithium. However with vraylar she did not have tremors. There is a dystonia reaction with vraylar. I still would consider a stroke more likely as she has tolerated the vraylar for several months. To suddenly have a reaction seems less likely 11/01 Hold the vraylar for now. If no improvement in her dystonia by Wednesday. Then it is not likely to be due to the medicine and I will restart it. (3) Hypothyroidism Current Visit: Yes Status: Chronic Plan: have reduced her dosage from 125 to 100mcg. Based on last weeks out patient labs. (4) Diabetes 1.5, managed as type 2 Current Visit: Yes Status: Chronic Plan: Her a1c is good. Will hold the trulicity. Start her on insulin sliding scale Discharge Plan: LTAC Plan to discharge in: 24 Hours - Code Status/Comfort Care Code Status Assessed: No Physician Review: Patient Assessed, Agree with Above Assessment and Plan Critical Care: No Time Spent Managing PTS Care (In Minutes): 20
[2021-11-02] MEDS: ATORVASTATIN 10 MG TAB PO SCH (21:01)
[2021-11-03] MEDS: LEVOTHYROXINE SOD 0.1 MG TAB PO SCH (05:56)
--- NOTE | 2021-11-03 07:43 | P.DS ---
Admission Date: 10/29/21 Discharge Date: 11/03/21 Primary Care Provider: Rajendra Disposition: TRANSFER TO INPATIENT REHAB Discharge Condition: GOOD Reason for Admission: stroke - Problems (1) Stroke Current Visit: Yes Status: Acute Qualifiers: CVA mechanism: unspecified Qualified Code(s): I63.9 - Cerebral infarction, unspecified (2) Bipolar 1 disorder, depressed Current Visit: Yes Status: Chronic (3) Hypothyroidism Current Visit: Yes Status: Chronic (4) Diabetes 1.5, managed as type 2 Current Visit: Yes Status: Chronic Brief History of Present Illness: Office patient of [facility] with a history of bipolar disorder, dm2, hypothyroidism. She had a phone visit to review her labs. However her sister stated she could not walk or swallow. She was in the office last week and walked on her own with no complaints. She was asked to come into the office. She needed to be wheeled in on a rolling walker. Her sister has been helping her stand and transfer since Wednesday. She had a tremor in her jaw. Her sister also reported she had difficulty swallowing. She nows the place she was, date and the name of the president. The patient needed 2 person assistance to stand. This was a major change from the patient in the office. 10/23. considering this she was se nt to the ER for stroke evaluation. Have discussed the patient with Dr. Mcgregor. Her CT in the ER showed nothing acute. She had chronic ischemic changes Hospital Course: Patient admitted for possible stroke. She had a negative stroke work up. Was seen by Dr. Mcgregor. Who suggested intense PT to get her mobile Will arrange for inpatient PT Restart her vraylar. Will have the patient follow up in the office after discharge from PT. Vital Signs/Physical Exam: Temp Pulse Resp BP Pulse Ox 98.2 F 74 16 100/59 L 98 11/03/21 04:00 11/03/21 04:00 11/03/21 04:00 11/03/21 04:00 11/03/21 04:00 General: Alert, In no apparent distress HEENT: Atraumatic, PERRLA, EOMI Neck: Supple, JVD not distended Respiratory: Clear to auscultation bilaterally, Normal air movement Cardiovascular: Regular rate/rhythm, Normal S1 S2 Gastrointestinal: Normal bowel sounds, No tenderness Musculoskeletal: No tenderness Integumentary: No rashes Neurological: Normal speech, Normal tone, Normal affect Lymphatics: No axilla or inguinal lymphadenopathy Laboratory Data at Discharge: WBC 5.50 K/uL (4.3-10.9) D 11/02/21 06:31 Hgb 14.2 g/dL (12.0-15.0) 11/02/21 06:31 Hct 41.8 % (36.0-45.0) 11/02/21 06:31 Plt Count 204 K/uL (152-406) 11/02/21 06:31 Sodium 137 mmol/L (136-145) 11/02/21 06:31 Potassium 3.8 mmol/L (3.5-5.1) 11/02/21 06:31 BUN 13 mg/dL (7-18) 11/02/21 06:31 Creatinine 0.40 mg/dL (0.55-1.3) L 11/02/21 06:31 Glucose 132 mg/dL (74-106) H 11/02/21 06:31 Total Bilirubin 0.4 mg/dL (0.2-1.0) 11/02/21 06:31 AST 18 U/L (15-37) 11/02/21 06:31 ALT 31 U/L (12-78) 11/02/21 06:31 Alkaline Phosphatase 76 U/L (45-117) 11/02/21 06:31 Home Medications: Cariprazine HCl [Vraylar] 4.5 mg PO DAILY 10/29/21 Dulaglutide [Trulicity] 1.5 mg SEECOM 10/29/21 Empagliflozin/Metformin HCl [Synjardy 12.5-1,000 mg Tablet] 1 tab PO DAILY 10/29/21 RX: Levothyroxine Sodium 100 mcg PO DAILY 10/29/21 Followup: Anders Drew MD [Primary Care Provider] - 1-2 Weeks Time spent managing pt's care (in minutes): 30
[2021-11-03] MEDS: ASPIRIN EC 81 MG TAB PO SCH (08:53)
[2021-11-03] MEDS: INSULIN -REGULAR HUMAN 50 UNIT/0.5 ML ML SQ SCH ×4 (08:53→23:26)
[2021-11-03] MEDS: CARIPRAZINE HCL 4.5 MG PO SCH (09:08)
[2021-11-03] MEDS: ATORVASTATIN 10 MG TAB PO SCH (23:27)
[2021-11-04] MEDS: LEVOTHYROXINE SOD 0.1 MG TAB PO SCH (05:58)
[2021-11-04] MEDS: INSULIN -REGULAR HUMAN 50 UNIT/0.5 ML ML SQ SCH ×4 (07:30→21:00)
--- NOTE | 2021-11-04 08:34 | P.PN ---
Subjective Date of Service: 11/04/21 Primary Care Provider: Rajendra Chief Complaint: stroke Subjective: Improving Review of Systems 10-point ROS is otherwise unremarkable General: Weakness Physical Examination - Vital Signs Temperature: 96.1 F Blood Pressure: 129/77 Pulse: 74 Respirations: 16 Pulse Ox (%): 98 - Physical Exam General: Alert, In no apparent distress HEENT: Atraumatic, PERRLA, EOMI Neck: Supple, JVD not distended Respiratory: Clear to auscultation bilaterally, Normal air movement Cardiovascular: Regular rate/rhythm, Normal S1 S2 Gastrointestinal: Normal bowel sounds, No tenderness Musculoskeletal: No tenderness Integumentary: No rashes Neurological: Normal speech, Normal tone, Normal affect Lymphatics: No axilla or inguinal lymphadenopathy Assessment And Plan - Current Problems (Diagnosis) (1) Stroke Current Visit: Yes Status: Acute Plan: She is out of the window for tpa or surgical intervention. Will order an MRI, PT and consult with Dr. Mcgregor. Order a swallow evaluation Will start her on asa 81mg and statin for cerebro protective effect. Start fluids as she will need contrast for the MRI. 11/04 discharge pending acceptance to In patient facility Qualifiers: CVA mechanism: unspecified Qualified Code(s): I63.9 - Cerebral infarction, unspecified (2) Bipolar 1 disorder, depressed Current Visit: Yes Status: Chronic Plan: The patient is well controlled. She was switched to vraylar a few months ago. She was well controlled on lithium. However with vraylar she did not have tremors. There is a dystonia reaction with vraylar. I still would consider a stroke more likely as she has tolerated the vraylar for several months. To suddenly have a reaction seems less likely 11/01 Hold the vraylar for now. If no improvement in her dystonia by Wednesday. Then it is not likely to be due to the medicine and I will restart it. (3) Hypothyroidism Current Visit: Yes Status: Chronic Plan: have reduced her dosage from 125 to 100mcg. Based on last weeks out patient labs. (4) Diabetes 1.5, managed as type 2 Current Visit: Yes Status: Chronic Plan: Her a1c is good. Will hold the trulicity. Start her on insulin sliding scale Discharge Plan: LTAC Plan to discharge in: 24 Hours - Code Status/Comfort Care Code Status Assessed: No Physician Review: Patient Assessed, Agree with Above Assessment and Plan Critical Care: No Time Spent Managing PTS Care (In Minutes): 20
[2021-11-04] MEDS: ASPIRIN EC 81 MG TAB PO SCH (08:53)
[2021-11-04] MEDS: CARIPRAZINE HCL 4.5 MG PO SCH (08:53)
[2021-11-04] MEDS: ATORVASTATIN 10 MG TAB PO SCH (21:26)
[2021-11-05] MEDS: LEVOTHYROXINE SOD 0.1 MG TAB PO SCH (06:02)
[2021-11-05] MEDS: INSULIN -REGULAR HUMAN 50 UNIT/0.5 ML ML SQ SCH ×2 (07:30→11:30)
--- NOTE | 2021-11-05 07:38 | P.PN ---
Subjective Date of Service: 11/05/21 Primary Care Provider: Rajendra Chief Complaint: stroke Subjective: No new changes (awaiting placement in [facility]) Review of Systems 10-point ROS is otherwise unremarkable General: Weakness Physical Examination - Vital Signs Temperature: 97.3 F Blood Pressure: 122/61 Pulse: 80 Respirations: 17 Pulse Ox (%): 97 - Physical Exam General: Alert, In no apparent distress HEENT: Atraumatic, PERRLA, EOMI Neck: Supple, JVD not distended Respiratory: Clear to auscultation bilaterally, Normal air movement Cardiovascular: Regular rate/rhythm, Normal S1 S2 Gastrointestinal: Normal bowel sounds, No tenderness Musculoskeletal: No tenderness Integumentary: No rashes Neurological: Normal speech, Normal tone, Normal affect Lymphatics: No axilla or inguinal lymphadenopathy Assessment And Plan - Current Problems (Diagnosis) (1) Bipolar 1 disorder, depressed Current Visit: Yes Status: Chronic Plan: The patient is well controlled. She was switched to vraylar a few months ago. She was well controlled on lithium. However with vraylar she did not have tremors. There is a dystonia reaction with vraylar. I still would consider a stroke more likely as she has tolerated the vraylar for several months. To suddenly have a reaction seems less likely 11/05 continue vraylar. Plans to move her to in patient PT center (2) Hypothyroidism Current Visit: Yes Status: Chronic Plan: have reduced her dosage from 125 to 100mcg. Based on last weeks out patient labs. (3) Diabetes 1.5, managed as type 2 Current Visit: Yes Status: Chronic Plan: Her a1c is good. Will hold the trulicity. Start her on insulin sliding scale Discharge Plan: LTAC - Code Status/Comfort Care Code Status Assessed: No Physician Review: Patient Assessed, Agree with Above Assessment and Plan Critical Care: No Time Spent Managing PTS Care (In Minutes): 20
[2021-11-05] MEDS: CARIPRAZINE HCL 4.5 MG PO SCH (10:05)
[2021-11-05] MEDS: ASPIRIN EC 81 MG TAB PO SCH (10:05)
[2021-11-05 10:33] VITALS: O2SAT 99
--- NOTE | 2021-11-05 12:36 | P.DS ---
Admission Date: 10/29/21 Discharge Date: 11/05/21 Primary Care Provider: Rajendra Disposition: TRANSFER TO CARE HOME Discharge Condition: GOOD Reason for Admission: stroke - Problems (1) Bipolar 1 disorder, depressed Current Visit: Yes Status: Chronic (2) Hypothyroidism Current Visit: Yes Status: Chronic (3) Diabetes 1.5, managed as type 2 Current Visit: Yes Status: Chronic Brief History of Present Illness: Office patient of mine with a history of bipolar disorder, dm2, hypothyroidism. She had a phone visit to review her labs. However her sister stated she could not walk or swallow. She was in the office last week and walked on her own with no complaints. She was asked to come into the office. She needed to be wheeled in on a rolling walker. Her sister has been helping her stand and transfer since Wednesday. She had a tremor in her jaw. Her sister also reported she had difficulty swallowing. She nows the place she was, date and the name of the president. The patient needed 2 person assistance to stand. This was a major change from the patient in the office. 10/23. considering this she was sent to the ER for stroke evaluation. Have discussed the patient with Dr. Kev pulido. Her CT in the ER showed nothing acute. She had chronic ischemic changes Hospital Course: Patient admitted for possible stroke. She had a negative stroke work up. Was seen by Dr. Mcgregor. Who suggested intense PT to get her mobile Will arrange for inpatient PT Restart her vraylar. Will have the patient follow up in the office after discharge from PT. 11/05 Her discharge was held 2 days till the patients stay was approved Vital Signs/Physical Exam: Temp Pulse Resp BP Pulse Ox 97.1 F 75 20 105/59 L 99 11/05/21 08:00 11/05/21 08:00 11/05/21 08:00 11/05/21 08:00 11/05/21 08:00 General: Alert, In no apparent distress HEENT: Atraumatic, PERRLA, EOMI Neck: Supple, JVD not distended Respiratory: Clear to auscultation bilaterally, Normal air movement Cardiovascular: Regular rate/rhythm, Normal S1 S2 Gastrointestinal: Normal bowel sounds, No tenderness Musculoskeletal: No tenderness Integumentary: No rashes Neurological: Normal speech, Normal tone, Normal affect Lymphatics: No axilla or inguinal lymphadenopathy Laboratory Data at Discharge: WBC 5.50 K/uL (4.3-10.9) D 11/02/21 06:31 Hgb 14.2 g/dL (12.0-15.0) 11/02/21 06:31 Hct 41.8 % (36.0-45.0) 11/02/21 06:31 Plt Count 204 K/uL (152-406) 11/02/21 06:31 Sodium 137 mmol/L (136-145) 11/02/21 06:31 Potassium 3.8 mmol/L (3.5-5.1) 11/02/21 06:31 BUN 13 mg/dL (7-18) 11/02/21 06:31 Creatinine 0.40 mg/dL (0.55-1.3) L 11/02/21 06:31 Glucose 132 mg/dL (74-106) H 11/02/21 06:31 Total Bilirubin 0.4 mg/dL (0.2-1.0) 11/02/21 06:31 AST 18 U/L (15-37) 11/02/21 06:31 ALT 31 U/L (12-78) 11/02/21 06:31 Alkaline Phosphatase 76 U/L (45-117) 11/02/21 06:31 Home Medications: Cariprazine HCl [Vraylar] 4.5 mg PO DAILY 10/29/21 Dulaglutide [Trulicity] 1.5 mg SEECOM 10/29/21 Empagliflozin/Metformin HCl [Synjardy 12.5-1,000 mg Tablet] 1 tab PO DAILY 10/29/21 Levothyroxine Sodium 100 mcg PO DAILY 10/29/21 Diet: Regular Followup: Anders Drew MD [Primary Care Provider] - 1-2 Weeks Time spent managing pt's care (in minutes): 30
[2021-11-05 14:04] VITALS: BP 137/78; TEMP 97.5
== END 2021-11-05 14:00 ==
LOC: ER 15:03 → 2ND 21:20 → 4TH 11-03 11:17
PROVIDERS: ADMIT Internal Medicine; ATTEND Internal Medicine
DX: R13.10 Dysphagia, unspecified (principal); R53.1 Weakness; R47.89 Other speech disturbances; R25.1 Tremor, unspecified; E13.65 Other specified diabetes mellitus with hyperglycemia; E03.9 Hypothyroidism, unspecified; R62.7 Adult failure to thrive; Z68.1 Body mass index [BMI] 19.9 or less, adult; F31.81 Bipolar II disorder; M79.10 Myalgia, unspecified site; M25.50 Pain in unspecified joint; Z87.891 Personal history of nicotine dependence; Z79.84 Long term (current) use of oral hypoglycemic drugs; Z79.899 Other long term (current) drug therapy; Z88.5 Allergy status to narcotic agent; Z88.1 Allergy status to other antibiotic agents; Z20.822 Contact with and (suspected) exposure to COVID-19
CPT/HCPCS: 96361; 93005; 85025 ×5; 80048; 36415 ×4; 82947 ×27; 84484; 80053 ×4; 70450; 71045; 74230; 70553; 70544; 70549; 92611; 97110 ×8; 97116; 97161; 97530 ×4; 96374; 99284; U0003 ×2; A9577; J1815 ×16; G0378 ×9; J7799 ×2; J7030